=== PATIENT | female | born 1950 | race Caucasian/White ===

== ENCOUNTER → 2016-05-25 | Outpatient (CLI) | payer MEDICARE ==
--- NOTE | 2016-05-26 08:35 | XR ---
EXAM TYPE: LUMBAR SPINE X RAY SERIES COMPARISON: NONE HISTORY: Pain TECHNIQUE: 4 views are submitted. FINDINGS: Alignment is anatomic. The pedicles are intact. The transverse processes are intact. There is a le voscoliosis. Severe degenerative disc disease at L3-4 and L2-3. Vacuum disc L5-S1. Superior endplate compression fracture to a mild degree L2 appears chronic. Moderate to severe degene rative disc disease at T12-L2. Facet arthropathy noted. IMPRESSION: 1. Multilevel moderate to severe degenerative disc disease with scoliotic curvature. Compression defo rmity superior endplate L2 appears chronic. Follow-up with MRI as clinically warranted..
--- NOTE | 2016-05-26 08:36 | XR ---
EXAMINATION TYPE: XR Hip Complete RT DATE OF EXAM: 05/25/2016 2:21 PM COMPARISON: NONE HISTORY: Right hip pain TECHNIQUE: 2 views submitted FINDINGS: There is no evidence of erosive change or acute fracture. There is narrowing the superior margin of the joint space. Surgical clip in the pelvis noted. IMPRESSION: 1. No evidence of acute fracture or dislocation. 2. Osteoarthritis.
== END | disposition home or self-care (01) ==
LOC: RADXRYALE 14:03
PROVIDERS: ATTEND Internal Medicine
DX: M51.36 Other intervertebral disc degeneration, lumbar region (principal); M48.56XA Collapsed vertebra, not elsewhere classified, lumbar region, initial encounter for fracture; M12.88 Other specific arthropathies, not elsewhere classified, other specified site; M16.11 Unilateral primary osteoarthritis, right hip
CPT/HCPCS: 72110; 73502

== ENCOUNTER → 2017-09-20 | Outpatient (CLI) | payer MEDICARE | END | disposition home or self-care (01) | LOC: LABPAT 15:16 | PROVIDERS: ATTEND Orthopaedic Surgery Sports Medicine | DX: Z01.812 Encounter for preprocedural laboratory examination (principal) | CPT/HCPCS: 87070 ==

== ENCOUNTER → 2017-09-24 | Outpatient (CLI) | payer MEDICARE ==
[2017-09-24 11:47] LABS: HCT 42.3 % (34.0-46.0); HGB 14.3 gm/dL (11.4-16.0); MCH 29.9 pg (25.0-35.0); MCHC 33.8 g/dL (31.0-37.0); MCV 88.4 fL (80.0-100.0); Mean Platelet Volume 8.4; Platelet Count 248 k/uL (150-450); RBC 4.78 m/uL (3.80-5.40); RDW 13.3 % (11.5-15.5); WBC 7.7 k/uL (3.8-10.6)
[2017-09-24 11:58] LABS: Appearance,Urine Clear (Clear); Bilirubin,Urine Negative (Negative); Blood,Urine Negative (Negative); Color,Urine Light Yellow; Glucose,Urine (UA) Negative (Negative); Ketones,Urine Negative (Negative); Leukocyte Esterase,Urine Negative (Negative); Nitrite,Urine Negative (Negative); PH, Urine 6.5 (5.0-8.0); Protein,Urine Negative (Negative); Specific Gravity,Urine 1.007 (1.001-1.035); Urobilinogen,Urine <2.0 mg/dL (<2.0)
[2017-09-24 12:08] LABS: ALT 35 U/L (9-52); AST 26 U/L (14-36); Albumin 4.4 g/dL (3.5-5.0); Alkaline Phosphatase 68 U/L (38-126); Anion Gap 11 mmol/L; Blood Urea Nitrogen 13 mg/dL (7-17); Calcium 9.5 mg/dL (8.4-10.2); Carbon Dioxide 28 mmol/L (22-30); Chloride 97 mmol/L (98-107); Glucose 108 mg/dL (74-99); Potassium 4.1 mmol/L (3.5-5.1); Sodium 136 mmol/L (137-145); Total Bilirubin 0.6 mg/dL (0.2-1.3); Total Protein 6.8 g/dL (6.3-8.2)
[2017-09-24 12:51] LABS: Partial Thromboplastin Time 22.9 sec (22.0-30.0)
== END | disposition home or self-care (01) ==
LOC: LABWHC1 10:11
PROVIDERS: ATTEND Orthopaedic Surgery Sports Medicine
DX: Z01.812 Encounter for preprocedural laboratory examination (principal); M17.11 Unilateral primary osteoarthritis, right knee
CPT/HCPCS: 80053; 81003; 85027; 85610; 85730

== ENCOUNTER 2017-10-11 12:49 | Inpatient (IN) | payer MEDICARE ==
[2017-10-02 09:47] VITALS: BMI 29.0
[~2017-10-11 12:49] MED LIST: ACETAMINOPHEN TAB 500 MG TAB PO ONE; DEXAMETHASONE SOD PHOSPHATE 10 MG/ML 1 ML VIAL IV ONE; HYDROmorphone 0.5 MG/0.5 ML SYRINGE IVP PRN; MELOXICAM 7.5 MG TAB PO ONE; ONDANSETRON 4 MG/2 ML VIAL IVP ONE; ROPIVACAINE 246.25 MG, EPINEPHrine 0.5 MG, KETOROLAC 30 MG, cloNIDine HCL/PF 80 MCG, WA... MISCELLANE ONE; TRANEXAMIC ACID 1,000 MG in SODIUM CHLORIDE 0.9% 50 ML IVPB ONE; ceFAZolin IN SWFI 2 GM/20 ML SYRINGE IVP ONE
[2017-10-11] MEDS: LACTATED RINGERS 1,000 ML IV SCH ×2 (13:18→18:34)
[2017-10-11] MEDS ORDERED: LIDOCAINE 1% 20 ML VIAL (10MG/ML) FOR IV START INTRADERMA ONE (13:18)
[2017-10-11 13:33] LABS: Glucose,Whole Blood 120 mg/dL (75-99)
[2017-10-11] MEDS ORDERED: NA PHOS,M-B/NA PHOS,DI-BA 133 ML ENEMA RECTAL PRN (13:55)
[2017-10-11] MEDS ORDERED: PROPOFOL 10 MG/ML 20 ML VIAL IV ONE (13:55)
[2017-10-11] MEDS ORDERED: HYDROmorphone 1 MG/ML 1 ML SYRINGE IVP PRN ×2 (13:55)
[2017-10-11] MEDS ORDERED: hydrOXYzine PAMOATE 25 MG CAP PO PRN (13:55)
[2017-10-11] MEDS ORDERED: fentaNYL (PF) 50 MCG/ML 2 ML AMP ONE (13:55)
[2017-10-11] MEDS ORDERED: BISACODYL 10 MG SUPP RECTAL PRN (13:55)
[2017-10-11] MEDS ORDERED: NALOXONE 0.4 MG/ML 1 ML VIAL IV PRN (13:55)
[2017-10-11] MEDS ORDERED: ONDANSETRON 4 MG/2 ML VIAL IVP PRN (13:55)
[2017-10-11] MEDS ORDERED: PHENYLEPHRINE-0.9% NACL SYG 1 MG/10 ML SYRINGE ONE (13:55)
[2017-10-11] MEDS ORDERED: HYDROcodone/APAP 5-325MG 1 EACH TAB PO PRN (13:55)
[2017-10-11] MEDS ORDERED: DIAZEPAM 5 MG TAB PO PRN (13:55)
[2017-10-11] MEDS ORDERED: TEMAZEPAM 15 MG CAP PO PRN (13:55)
[2017-10-11] MEDS ORDERED: MIDAZOLAM 2 MG/2 ML VIAL ONE (13:55)
[2017-10-11] MEDS ORDERED: SODIUM CHLORIDE 0.9% 100 ML BAG ONE (13:55)
[2017-10-11] MEDS ORDERED: TRANEXAMIC ACID 1,000 MG/10 ML VIAL ONE (13:55)
[2017-10-11] MEDS ORDERED: MAGNESIUM HYDROXIDE 2,400 MG/10 ML CUP PO PRN (13:55)
[2017-10-11] MEDS ORDERED: HYDROmorphone 0.5 MG/0.5 ML SYRINGE IVP PRN (13:55)
[2017-10-11] MEDS ORDERED: ceFAZolin 3,000 MG in SODIUM CHLORIDE 0.9% IRRIGATIO 3,000 ML IRRIGATION ONE (14:25)
[2017-10-11] MEDS ORDERED: LACTATED RINGERS 1,000 ML IV ONE (14:52)
[2017-10-11 16:07] LABS: Glucose,Whole Blood 121 mg/dL (75-99)
--- NOTE | 2017-10-11 16:10 | XR ---
EXAMINATION TYPE: XR knee limited RT DATE OF EXAM: 10/11/2017 COMPARISON: NONE HISTORY: 67-year-old female evaluation for postop abnormality and alignment TECHNIQUE: 2 views FINDINGS: Images show placement of right total knee arthroplasty. Both distal femoral and proximal tibial compo nents of the prosthesis are well seated without periprosthetic fracture. Anterior soft tissue swellin g with soft tissue air as well as intra-articular air related to recent operation. Alignment grossly anatomic. IMPRESSION: Uncomplicated postoperative appearance right total knee arthroplasty.
--- NOTE | 2017-10-11 17:43 | OP ---
OPERATIVE REPORT DATE OF PROCEDURE: 10/11/2017 SURGEON: Mitch Monet M.D. COOK BOAT: Fuentes Peterson PA-C PREOPERATIVE DIAGNOSIS: Right knee osteoarthrosis. POSTOPERATIVE DIAGNOSIS: Right knee osteoarthrosis. OPERATION: Right total knee arthroplasty. ANESTHESIA: Spinal with sedation. ESTIMATED BLOOD LOSS: 100 mL. TOURNIQUET TIME: 47 minutes at 250 mmHg. COMPLICATIONS: None apparent. DRAINS: None. DISPOSITION: Post-Anesthesia Care Unit. INDICATIONS: Angeles is a very pleasant 67-year-old female with longstanding history of right knee pain. History and physical examination are consistent with advanced right knee osteoarthrosis. She has been through significant nonoperative management up to this point. Further treatment options were discussed and she has decided to go forward with right total knee arthroplasty. The risks of the procedure were discussed with her in detail. These risks include but are not limited to risk of infection, nerve damage, bleeding, pain and a risk of deep vein thrombosis which could lead to fatal pulmonary embolism. There is also a risk of loosening of the implant which could require revision operation. The patient understands these risks. All of her questions were answered to her satisfaction. Appropriate informed consent was obtained. DESCRIPTION OF THE PROCEDURE: Patient was identified in the preoperative holding area. Surgical site was marked by both the patient and myself. She was given 2 grams of Ancef IV for prophylactic purposes. She was then transferred to the operative suite. She was placed supine on the operating room table. Spinal anesthetic was then administered and dosed per the anesthesia department without apparent complication. Examination under anesthesia was then performed. The patient had full extension. She had 100 degrees of flexion and the medial collateral ligament, lateral collateral ligament and posterior cruciate ligaments were stable. Tourniquet was then placed high on the right upper thigh, well padded in preparation for surgery. The patient's right lower extremity was then prepped and draped in the usual sterile fashion. Standard surgical pause was then undertaken to ensure that we were operating on the correct site and that appropriate preoperative antibiotics had been given. All staff in the room were in agreement and we proceeded. The outlines of the patella were marked with a surgical pen. A planned 12 cm vertical incision centered over the patella was marked with a surgical pen. The leg was then exsanguinated with an Esmarch dressing. The knee was then flexed and the tourniquet was inflated to 250 mmHg. The total tourniquet time for the procedure was 47 minutes. Incision was then made with a 10 blade scalpel. Dissection was carried down sharply to the overlying fascia. Great care was taken to minimize the skin flaps. The knee was then exposed using standard medial parapatellar approach. A small cuff of quadriceps tendon was left for suturing. She was in a bit of varus preoperatively. A standard medial release was then made. Superficial medial collateral ligament was dissected off of the bone around to the posterior aspect of the proximal tibia. The medial meniscus was then excised as well. The lateral meniscus was also released anteriorly. The leg was then externally rotated. The patella was everted and the knee was flexed. The retractors were then placed to protect the collateral ligaments. I then proceeded to remove the infrapatellar fat pad. This was excised sharply tangentially with the fibers of the patellar tendon. I then proceeded to remove peripheral osteophytes. This was done with a rongeur. I then proceeded with the distal femoral resection. She did have near-full extension. A planned 9 mm resection was then done. The femoral canal was then entered in the midline of the femur approximately 10 mm anterior to the origin of the posterior cruciate ligament. The tiffany was then advanced down the center of the femur and placed intramedullary. Based on preoperative radiographs, the angle between the anatomic and mechanical axis of the femur was approximately 4-5 degrees. The valgus angle of the distal femoral cutting guide was then set at 4 degrees for the right knee. The distal femoral cutting guide was then advanced over the intramedullary tiffany. This was seated firmly against the femur. I then, as mentioned, planned to take 9 mm off the distal femur. The cutting block was then secured onto the femur with pins. The jig was then removed and the distal femoral cut was made through the slot of the block. The pins were then removed and the distal femoral cutting block was removed. The accuracy of the distal femoral cuts was checked with 2 flat bars. I then proceeded with femoral sizing. The posterior referencing sizing guide was held firmly against the resected distal surface of the femur. The posterior condyles were resting on the posterior plane of the guide. The sizing stylus was then placed onto the anterior femur. The size was measured as a size 9. I then assessed for femoral rotation. The plan was for 3 degrees of external rotation. Three degrees of external rotation was placed onto the jig. These holes were then marked. I then confirmed the rotation by 3 separate methods. This was done using the epicondylar axis as well as Whitesides line and posterior referencing. It was deemed that the external rotation was proper. I then went forward with placing the femoral cutting block. This was placed over the previously placed pin holes. The Javier wing was then placed onto the anterior slots to ensure that we would not notch the anterior femur with the anterior femoral cut. I then proceed with the anterior femoral cut. This was flush with the anterior cortex of the femur. Posterior cuts were then made followed by the anterior chamfer cut and then the posterior chamfer cut. The cutting block was then removed. Throughout the resection, the collateral ligaments were protected with retractors. I then placed a trial size 9 femur. It fit very nice and flush with the distal end of the femur. It was slightly wide medial to lateral, but the narrow fit very nice medial to lateral. The drill holes were then made. I then proceeded with the tibial cut. I planned for a cruciate-retaining knee. The guide was placed and set for varus, valgus and for slope. The height was set for an approximate 2 mm resection from the medial tibial plateau, which was the lower side. I was happy with the alignment and the amount of resection. The cutting block was then pinned to the proximal tibia. The alignment tiffany was removed. Then proximal tibia was resected with a reciprocating saw. Again this was done with retractors protecting the collateral ligaments as well as the posterior cruciate ligament. I then proceeded to evaluate the flexion and extension gaps. A 10 mm block was then placed. The flexion and extension gaps were equal. I then proceeded with resection of posterior osteophytes. She had very minimal posterior osteophytes. This was done using a curved osteotome. This resected the posterior osteophytes, and posterior capsule stripping was also done off the posterior aspect of the femur at this time. The osteophytes were then removed. I then proceeded with resection of the patella. The thickness of the patella was measured using the caliper. The thickness was 22 mm. Thickness of the anticipated patellar dome was taken into account. Resection was then performed and confirmed to be equal in 4 quadrants using a caliper. Approximately 14 mm of bone remained after the resection. A 32 x 8.5 mm standard patellar trial was then placed. The holes were drilled and the trial was then placed. I then proceeded with sizing of the tibial plate. A size E tibial plate fit very nicely. I then placed the trial femur, the tibial tray and the patellar button. A 10 mm trial tibial insert was also placed. The components fit very nicely. She had full extension and flexion. The extension and flexion gaps were equal and stable to both varus and valgus stress. The patella tracked appropriately. Tibial tray rotation was marked with a Bovie. This was externally rotated properly. I then proceed with tibial preparation. I first drilled the femoral holes and removed the femoral component. The tibial tray was then set for proper external rotation as well as mediolateral placement onto the tibia. It was then pinned into place. I then proceeded with punching the keel. I then decided to proceed with cementing of all of our components. The knee was thoroughly irrigated with sterile saline solution via pulse lavage. The lateral geniculate artery was identified and cauterized. All blood was removed from the bone of the tibia, femur and patella with pulse lavage. I then proceeded with cementing. Two packs of antibiotic bone cement were prepared on the back table by the surgical garment inspector. I then proceeded with cementing the tibia first. The cement was impacted into the keel as well as deeply seated into the bone. A second coat of cement was then placed. The tibia was then impacted into place. Excess cement was removed with Daniel's and jokers. I then proceeded with cementing the femoral component. The femoral component was also cemented using standard technique. Excess cement was removed. A 10 mm trial insert was then placed into the knee. It was brought into full extension with a constant axial load placed until the cement had hardened. The patellar component was then cemented. This was held firmly with a compressive device until the cement had dried. When the cement had dried, the knee was taken out of extension. All excess cement was removed from around the prosthesis. I then trialed the knee with a 10 mm insert. Flexion and extension gaps were appropriate. I trialed with an 11 mm insert. The flexion and extension gaps felt better. The knee was stable with an 11 mm insert. It came into full extension. I decided to go forward with an 11 mm cross-linked cruciate- retaining tibial insert. The polyethylene was then placed onto the tray and locked into place. The knee was then reduced. The knee was again further irrigated with sterile saline solution with antibiotic added. The tourniquet was then deflated. The total tourniquet time for the procedure was 47 minutes at 250 mmHg. Final components were Elizabeth Persona size 9 narrow cruciate-retaining femoral component, a size E tibial tray, an 11 mm cruciate- retaining polyethylene insert and a 32 x 8.5 mm patella. I then proceeded with closure. Again the knee was thoroughly irrigated. The quadriceps tendon and the medial retinaculum were reapproximated with #2 Ethibond suture. The extensor mechanism was then closed with a running #2 Quill suture. Subcutaneous tissues were closed with 2-0 Vicryl interrupted suture. The skin was closed with a running 3-0 Quill suture. Dermabond was applied to the incision. Sterile compressive dressings were then applied. All sponge and needle counts were deemed correct prior to closure. The patient tolerated the procedure without apparent complication. She was transferred to the recovery room in stable condition. MMODL / IJN: [id number] /
--- NOTE | 2017-10-11 17:46 | P.CONS ---
History of Present Illness - Reason for Consult Recommendations regarding antihypertensive, diabetic medications - History of Present Illness Patient is a pleasant 61-year-old female admitted for elective right knee arthroplasty is excessively underwent surgery did not pass gas yet. Denied any fever chills doesn't have a Doran catheter at this time denied any chest pain. Dysuria. Review of Systems REVIEW OF SYSTEMS: CONSTITUTIONAL: No fever, no malaise, no fatigue. HEENT: No recent visual problems or hearing problems. Denied any sore throat. CARDIOVASCULAR: No chest pain, orthopnea, PND, no palpitations, no syncope. PULMONARY: No shortness of breath, no cough, no hemoptysis. GASTROINTESTINAL: No diarrhea, no nausea, no vomiting, no abdominal pain. Normoactive bowel sounds. NEUROLOGICAL: No headaches, no weakness, no numbness. HEMATOLOGICAL: Denies any bleeding or petechiae. GENITOURINARY: Denies any burning micturition, frequency, or urgency. MUSCULOSKELETAL/RHEUMATOLOGICAL: Denies any joint pain, swelling, or any muscle pain. ENDOCRINE: Denies any polyuria or polydipsia. The rest of the 14-point review of systems is negative. Past Medical History Past Medical History: Diabetes Mellitus, Eye Disorder, Hyperlipidemia, Hypertension, Osteoarthritis (OA), Thyroid Disorder Additional Past Medical History / Comment(s): GLAUCOMA History of Any Multi-Drug Resistant Organisms: None Reported Additional Past Surgical History / Comment(s): RFA BACK NERVES Past Anesthesia/Blood Transfusion Reactions: No Reported Reaction Smoking Status: Never smoker - Past Family History Mother Family Medical History: No Reported History Medications and Allergies Home Medications Medication Instructions Recorded Confirmed Type Aspirin [Adult Low Dose Aspirin EC] 81 mg PO HS 10/02/17 10/11/17 History Atorvastatin [Lipitor] 40 mg PO HS 10/02/17 10/11/17 History Cetirizine HCl [Zyrtec] 10 mg PO DAILY 10/02/17 10/11/17 History Cyanocobalamin (Vitamin B-12) 1,000 mcg PO DAILY 10/02/17 10/11/17 History [Vitamin B-12] Krill/Om-3/Dha/Epa/Phospho/Ast 1 each PO DAILY 10/02/17 10/11/17 History [[place]-3 Krill Oil 300 mg Sfgl] Levothyroxine Sodium [Synthroid] 150 mcg PO DAILY 10/02/17 10/11/17 History Meloxicam [Mobic] 7.5 mg PO DAILY 10/02/17 10/11/17 History Metoprolol Succinate [Toprol XL] 25 mg PO DAILY 10/02/17 10/11/17 History Valsartan/Hydrochlorothiazide 1 each PO DAILY 10/02/17 10/11/17 History [Valsartan-Hctz 320-12.5 mg Tab] metFORMIN HCL [Glucophage Xr] 500 mg PO HS 10/02/17 10/11/17 History Latanoprost Ophth [Xalatan 0.005%] 1 drops BOTH EYES HS 10/03/17 10/11/17 History Aspirin 325 mg PO BID #60 tab 10/11/17 Rx Docusate [Colace] 100 mg PO BID #60 capsule 10/11/17 Rx HYDROcodone/APAP 7.5-325MG [[place] 1 - 2 each PO Q6HR PRN #56 tab 10/11/17 Rx 7.5-325] Allergies Allergy/AdvReac Type Severity Reaction Status Date / Time ciprofloxacin [From Cipro] AdvReac Rapid Verified 10/11/17 16:55 Heart Rate sodium AdvReac Rapid Verified 10/11/17 16:55 Heart Rate Physical Exam Vitals: Vital Signs Temp Pulse Resp BP Pulse Ox 10/11/17 16:44 97.6 F 98 16 124/65 98 10/11/17 16:20 90 16 130/59 96 10/11/17 16:05 93 16 116/58 96 10/11/17 15:50 97.0 F L 91 18 131/58 94 L 10/11/17 13:24 98.4 F 109 H 18 189/82 96 Intake and Output 10/11/17 10/11/17 10/11/17 06:59 14:59 22:59 Intake Total 1201 200 Output Total 100 Balance 1201 100 Intake: IV 1201 200 Output: Estimated Blood Loss 100 Other: Weight 81.647 kg PHYSICAL EXAMINATION: GENERAL: The patient is alert and oriented x3, not in any acute distress. Well developed, well nourished. HEENT: Pupils are round and equally reacting to light. EOMI. No scleral icterus. No conjunctival pallor. Normocephalic, atraumatic. No pharyngeal erythema. No thyromegaly. CARDIOVASCULAR: S1 and S2 present. No murmurs, rubs, or gallops. PULMONARY: Chest is clear to auscultation, no wheezing or crackles. ABDOMEN: Soft, nontender, nondistended, normoactive bowel sounds. No palpable organomegaly. MUSCULOSKELETAL: Deferred to orthopedic surgery EXTREMITIES: No cyanosis, clubbing, or pedal edema. NEUROLOGICAL: Gross neurological examination did not reveal any focal deficits. SKIN: No rashes. Results Labs: Abnormal Lab Results - Last 24 Hours (Table) 10/11/17 10/11/17 Range/Units 13:19 16:05 POC Glucose (mg/dL) 120 H 121 H (75-99) mg/dL Assessment and Plan Plan: -Type 2 diabetes mellitus: Hold off on metformin patient was started on sliding scale insulin. -Hypertension to prevent perioperative hypotension which is expected during this time I will hold off on antidepressant medication except for metoprolol which will be continued. -Hypertension -Hypothyroidism any with levothyroxine -Right knee arthroplasty: Postoperative pain management DVT prophylaxis as per primary service
[2017-10-11] MEDS: INSULIN ASPART 100 UNIT/ML 1 ML 10 ML VIAL SQ SCH ×2 (18:21→20:28)
[2017-10-11 20:25] LABS: Glucose,Whole Blood 287 mg/dL (75-99)
[2017-10-11] MEDS: ASPIRIN 325 MG TAB PO SCH (20:28)
[2017-10-11] MEDS: ceFAZolin IN SWFI 2 GM/20 ML SYRINGE IVP SCH (20:28)
[2017-10-11] MEDS ORDERED: NON-FORMULARY DRUG (Aspirin [Adult Low Dose Aspirin Ec] 81 MG) PO SCH (21:00)
[2017-10-11] MEDS ORDERED: ATORVASTATIN 40 MG TAB PO SCH (21:00)
[2017-10-11] MEDS ORDERED: SENNOSIDES-DOCUSATE SODIUM 1 EACH TAB PO SCH (21:00)
[2017-10-11 21:22] LABS: ABG Base Excess -1.1 mmol/L; ABG HCO3 23 mmol/L (21-25); ABG Oxygen Saturation 95.3 % (94-97); ABG PCO2 33 mmHg (35-45); ABG PH 7.45 (7.35-7.45); ABG PO2 74 mmHg (83-108); ABG TCO2 24 mmol/L (19-24)
[2017-10-11] MEDS: HYDROcodone/APAP 10-325MG 1 EACH TAB PO PRN (22:00)
[2017-10-12 01:30] VITALS: TEMP 98.2
[2017-10-12] MEDS: LACTATED RINGERS 1,000 ML IV SCH ×3 (01:55→10:34)
[2017-10-12] MEDS: HYDROcodone/APAP 10-325MG 1 EACH TAB PO PRN ×2 (05:00→11:03)
[2017-10-12] MEDS: ceFAZolin IN SWFI 2 GM/20 ML SYRINGE IVP SCH (05:00)
[2017-10-12] MEDS ORDERED: LEVOTHYROXINE 75 MCG TAB PO SCH (06:30)
[2017-10-12 07:04] LABS: Glucose,Whole Blood 136 mg/dL (75-99)
[2017-10-12 07:11] LABS: Basophils % (A) 0 %; Eosinophils % (A) 0 %; HCT 35.8 % (34.0-46.0); HGB 11.8 gm/dL (11.4-16.0); Lymphocytes # (A) 1.2 k/uL (1.0-4.8); Lymphocytes % (A) 7 %; MCH 28.8 pg (25.0-35.0); MCV 87.3 fL (80.0-100.0); Mean Platelet Volume 8.4; Monocytes # (A) 0.7 k/uL (0-1.0); Monocytes % (A) 5 %; Neutrophils # (A) 14.1 k/uL (1.3-7.7); Neutrophils % (A) 88 %; Platelet Count 276 k/uL (150-450); RBC 4.11 m/uL (3.80-5.40); RDW 12.6 % (11.5-15.5); WBC 16.1 k/uL (3.8-10.6)
[2017-10-12 07:31] VITALS: BP 128/77; PULSE 104; RESP 14
[2017-10-12] MEDS: INSULIN ASPART 100 UNIT/ML 1 ML 10 ML VIAL SQ SCH (08:10)
[2017-10-12] MEDS: ASPIRIN 325 MG TAB PO SCH (08:10)
--- NOTE | 2017-10-12 08:43 | P.DS ---
Providers Date of admission: 10/11/17 12:49 Expected date of discharge: 10/12/17 Attending physician: Mitch Monet Consults: 10/11/17 13:55 Consult Physician Routine Consulting Provider: Marleny Mott Consult Reason/Comments: post op medical management Do you want consulting provider notified?: Yes 10/11/17 16:25 Consult Physician Routine Consulting Provider: Matthew Suarez Consult Reason/Comments: medical management Do you want consulting provider notified?: Yes Primary care physician: Marleny Mott - Discharge Diagnosis(es) (1) Primary osteoarthritis of right knee Current Visit: Yes Status: Acute (2) S/P total knee arthroplasty Current Visit: Yes Status: Acute Hospital Course: This is a 67-year-old female with known history of degenerative arthritis of the right knee. The patient presents for evaluation. After discussion and consideration patient elects to proceed with total knee arthroplasty. The patient is seen preoperatively by Dr. Monet and medically cleared for surgery by their primary care physician. Patient is admitted to [facility] on 10/11/2017 for total knee arthroplasty. The procedures performed without complication or sequelae. The patient is doing well postoperatively. Labs and vital signs are stable on day of discharge. On day of discharge patient's knee incision is healing well. There is minimal erythema. There is no drainage noted at this time. There is minimal soft tissue swelling to the knee. Patient has full foot and ankle motion without difficulty or pain. Neurovascular status to the right lower extremity is intact. Patient is discharged home in good condition. Please see med rec for accurate list of home medications. Plan - Discharge Summary Discharge Rx Participant: Yes New Discharge Prescriptions: New Aspirin 325 mg PO BID #60 tab Docusate [Colace] 100 mg PO BID #60 capsule HYDROcodone/APAP 7.5-325MG [[place] 7.5-325] 1 - 2 each PO Q6HR PRN #56 tab PRN Reason: Pain No Action metFORMIN HCL [Glucophage Xr] 500 mg PO HS Atorvastatin [Lipitor] 40 mg PO HS Metoprolol Succinate [Toprol XL] 25 mg PO DAILY Meloxicam [Mobic] 7.5 mg PO DAILY Cetirizine HCl [Zyrtec] 10 mg PO DAILY Valsartan/Hydrochlorothiazide [Valsartan-Hctz 320-12.5 mg Tab] 1 tab PO DAILY Levothyroxine Sodium [Synthroid] 150 mcg PO DAILY Krill/Om-3/Dha/Epa/Phospho/Ast [[place]-3 Krill Oil 300 mg Sfgl] 1 cap PO DAILY Cyanocobalamin (Vitamin B-12) [Vitamin B-12] 1,000 mcg PO DAILY Aspirin [Adult Low Dose Aspirin EC] 81 mg PO HS Latanoprost Ophth [Xalatan 0.005%] 1 drops BOTH EYES HS Discharge Medication List Aspirin [Adult Low Dose Aspirin EC] 81 mg PO HS 10/02/17 [History] Atorvastatin [Lipitor] 40 mg PO HS 10/02/17 [History] Cetirizine HCl [Zyrtec] 10 mg PO DAILY 10/02/17 [History] Cyanocobalamin (Vitamin B-12) [Vitamin B-12] 1,000 mcg PO DAILY 10/02/17 [ History] Krill/Om-3/Dha/Epa/Phospho/Ast [[place]-3 Krill Oil 300 mg Sfgl] 1 cap PO DAILY [History] Levothyroxine Sodium [Synthroid] 150 mcg PO DAILY 10/02/17 [History] Meloxicam [Mobic] 7.5 mg PO DAILY 10/02/17 [History] Metoprolol Succinate [Toprol XL] 25 mg PO DAILY 10/02/17 [History] Valsartan/Hydrochlorothiazide [Valsartan-Hctz 320-12.5 mg Tab] 1 tab PO DAILY [History] metFORMIN HCL [Glucophage Xr] 500 mg PO HS 10/02/17 [History] Latanoprost Ophth [Xalatan 0.005%] 1 drops BOTH EYES HS 10/03/17 [History] Aspirin 325 mg PO BID #60 tab 10/11/17 [Rx] Docusate [Colace] 100 mg PO BID #60 capsule 10/11/17 [Rx] HYDROcodone/APAP 7.5-325MG [[place] 7.5-325] 1 - 2 each PO Q6HR PRN #56 tab [Rx] Follow up Appointment(s)/Referral(s): Mitch Monet MD [STAFF PHYSICIAN] - 1 Week Activity/Diet/Wound Care/Special Instructions: keep wound clean and dry take meds as directed f/u with Dr. Monet in office [facility] Discharge Disposition: HOME WITH HOME HEALTH SERVICES
[2017-10-12] MEDS ORDERED: METOPROLOL SUCCINATE (ER) 25 MG TAB.ER.24H PO SCH (09:00)
[2017-10-12] MEDS ORDERED: HYDROmorphone 2 MG TAB PO PRN ×3 (11:12→11:13)
[2017-10-12] MEDS ORDERED: MULTIVITAMINS, THERA 1 EACH TAB PO SCH (13:57)
== END 2017-10-12 11:20 | disposition home health service (06) | DRG 470 ==
LOC: 2ORMAIN 12:49 → 3SUR 15:44
PROVIDERS: ADMIT Orthopaedic Surgery Sports Medicine; ATTEND Orthopaedic Surgery Sports Medicine
PROC: 0SRC0J9 Replacement of Right Knee Joint with Synthetic Substitute, Cemented, Open Approach (ICD-10-PCS; principal; 2017-10-11 15:00)
DX: M17.11 Unilateral primary osteoarthritis, right knee (principal); E11.9 Type 2 diabetes mellitus without complications; I10 Essential (primary) hypertension; E03.9 Hypothyroidism, unspecified; E78.5 Hyperlipidemia, unspecified; Z79.899 Other long term (current) drug therapy; Z79.84 Long term (current) use of oral hypoglycemic drugs; Z79.1 Long term (current) use of non-steroidal anti-inflammatories (NSAID); Z79.890 Hormone replacement therapy; Z88.1 Allergy status to other antibiotic agents; Z88.8 Allergy status to other drugs, medicaments and biological substances; Z79.82 Long term (current) use of aspirin
CPT/HCPCS: 36600; 82805; 85025; 88300

== ENCOUNTER → 2020-01-12 | Outpatient (CLI) | payer MEDICARE ==
--- NOTE | 2020-01-12 11:31 | US ---
EXAMINATION TYPE: US kidneys/renal and bladder DATE OF EXAM: 01/12/2020 COMPARISON: NONE CLINICAL HISTORY: N18.3 Chronic Kidney Disease Stage 3. CKD EXAM MEASUREMENTS: Right Kidney: 9.2 x 4.8 x 3.8 cm Left Kidney: 9.1 x 4.9 x 3.4 cm Right Kidney: No hydronephrosis or masses seen Left Kidney: No hydronephrosis or masses seen Bladder: wnl Bilateral Jets seen: Yes Renal size is symmetric and lower limits of normal. There is no evidence for hydronephrosis at this p oint in time. No nephrolithiasis is seen. No masses are identified. The urinary bladder is satisfa ctorily distended. Bilateral ureteral jets are seen. IMPRESSION: No hydronephrosis is noted bilaterally.
== END | disposition home or self-care (01) ==
LOC: RADUSWWP 10:53
PROVIDERS: ATTEND Internal Medicine Nephrology
DX: N18.30 Chronic kidney disease, stage 3 unspecified (principal)
CPT/HCPCS: 76770